=== PATIENT | male | born 1955 | race Caucasian/White ===

== ENCOUNTER 2016-05-02 13:42 | Inpatient (IN) | payer OTHER ==
[~2016-05-02] VITALS: Ht 185.4 cm; Wt 128.8 kg
[2016-05-03] VITALS (9 sets, daily range): BP systolic 101–148; BP diastolic 55–85; PULSE 65–90; TEMP 97.4–98.9
[2016-05-03 12:32] LABS: PH 6 (5-8); SQUAMOUS EPITHELIAL None Seen /hpf; URINE APPEARANCE Clear; URINE BACTERIA None Seen /hpf; URINE BILIRUBIN Negative (NEGATIVE); URINE BLOOD Negative (NEGATIVE); URINE COLOR Yellow; URINE GLUCOSE Negative (NEGATIVE); URINE KETONE Negative (NEGATIVE); URINE RBC 0-2 /hpf; URINE UROBILINOGEN Negative (NEGATIVE); URINE WBC 0-2 /hpf
[2016-05-03 13:23] LABS: INR 1.2 (0.8-3.0); PROTHROMBIN TIME 13.4 SECONDS (9.7-12.8)
[2016-05-03 13:28] LABS: BASO # 0.1 (0.0-0.2); BASO % 0.8 % (0.0-2.0); EOS # 0.2 (0.0-0.7); EOS % 1.6 % (0-4.0); GRAN # 6.6 (1.4-6.5); GRAN % 69.7 % (42.2-75.2); HEMATOCRIT 38.9 % (42.0-52.0); HEMOGLOBIN 12.6 g/dl (13.5-18.0); LYMPH # 1.8 (1.2-3.4); LYMPH % 19.1 % (20.0-51.0); MEAN CELL VOLUME 89 fl (80.0-100.0); MEAN CORPUSCULAR HEMOGLOBIN 29 pg (27.0-31.0); MEAN CORPUSCULAR HGB CONC 32 g/dl (33.0-37.0); MEAN PLATELET VOLUME 9.5 fl (7.4-10.4); MONO # 0.7 (0.1-0.6); MONO % 7.7 % (1.7-9.3); PLATELET COUNT 358 K/mm3 (130-400); RED BLOOD COUNT 4.35 M/mm3 (4.20-5.60); REDCELL DISTRIBUTION WIDTH-CV 12.6 % (11.5-14.5); WHITE BLOOD COUNT 9.5 K/mm3 (4.8-10.8)
[2016-05-03 13:31] LABS: C-REACTIVE PROTEIN 5.5 mg/dL (0.0-0.9)
[2016-05-03] MEDS ORDERED: ZESTRIL 20MG TA20 MG PO (13:32)
[2016-05-03] MEDS ORDERED: PHENOBARBITAL32.4 MG PO (13:33)
[2016-05-03] MEDS ORDERED: SYNTHROID0.2 MG/TAB PO (13:33)
[2016-05-03] MEDS ORDERED: MOTRIN 200200 MG/TAB PO (13:34)
[2016-05-03] MEDS ORDERED: TYLENOL 325MG325 MG PO (13:34)
[2016-05-03 14:01] LABS: CALCIUM 9.4 mg/dL (8.4-10.2); CREATININE, serum 0.78 mg/dL (0.66-1.25)
[2016-05-04] VITALS (7 sets, daily range): BP systolic 107–151; BP diastolic 56–84; PULSE 66–91; TEMP 97.5–98.9
[2016-05-04 07:09] LABS: HEMATOCRIT 37.5 % (42.0-52.0); HEMOGLOBIN 11.8 g/dl (13.5-18.0)
[2016-05-05 01:46] VITALS: BP 151/84; PULSE 86; TEMP 97
[2016-05-05 05:04] VITALS: BP 127/80; PULSE 89; TEMP 98.1
[2016-05-05 05:55] LABS: HEMATOCRIT 26.1 % (42.0-52.0); HEMOGLOBIN 8.4 g/dl (13.5-18.0)
[2016-05-05 09:28] VITALS: BP 178/83; PULSE 88; TEMP 97.1
[2016-05-05 13:39] VITALS: BP 152/82; PULSE 88; TEMP 99.3
[2016-05-05 18:00] VITALS: BP 152/78; PULSE 91; TEMP 98.4
[2016-05-05 22:01] VITALS: BP 148/78; PULSE 91; TEMP 99.2
[2016-05-06 01:22] VITALS: BP 142/75; PULSE 80; TEMP 98.9
[2016-05-06 06:15] VITALS: BP 138/79; PULSE 82; TEMP 97.2
[2016-05-06 10:06] VITALS: BP 154/85; PULSE 86; TEMP 98.1
[2016-05-06 14:06] VITALS: BP 156/88; PULSE 82; TEMP 98.8
[2016-05-06 18:06] VITALS: BP 148/85; PULSE 80; TEMP 99
[2016-05-06 22:46] VITALS: BP 141/70; PULSE 80; TEMP 98.9
[2016-05-07 05:29] VITALS: BP 144/83; PULSE 74; TEMP 98.1
[2016-05-07 09:45] VITALS: BP 155/86; PULSE 81; TEMP 97.1
[2016-05-07 14:15] VITALS: BP 147/82; PULSE 76; TEMP 99.5
[2016-05-07] MEDS ORDERED: PERCOCET 325 MG1 TA2 PO (14:42)
[2016-05-07 18:23] VITALS: BP 159/84; PULSE 83; TEMP 97.2
[2016-05-07 22:49] VITALS: BP 138/79; PULSE 79; TEMP 98.5
[2016-05-08 05:38] VITALS: BP 143/84; PULSE 73; TEMP 98.5
[2016-05-08 08:02] LABS: HEMATOCRIT 25.8 % (42.0-52.0); HEMOGLOBIN 8.2 g/dl (13.5-18.0)
[2016-05-08 09:30] VITALS: BP 149/87; PULSE 76; TEMP 97.7
[2016-05-08 13:32] VITALS: BP 139/87; PULSE 77; TEMP 97.6
[2016-05-08 17:06] VITALS: BP 155/92; PULSE 76; TEMP 98
[2016-05-08 22:15] VITALS: BP 134/77; PULSE 73; TEMP 98.4
[2016-05-09] VITALS (13 sets, daily range): BP systolic 131–158; BP diastolic 63–90; PULSE 63–100; TEMP 97.8–98.6
[2016-05-10 02:21] VITALS: BP 159/69; PULSE 84; TEMP 98.9
[2016-05-10 04:38] VITALS: BP 142/77; PULSE 77; TEMP 97.5
[2016-05-10 06:44] LABS: HEMATOCRIT 27.2 % (42.0-52.0); HEMOGLOBIN 8.5 g/dl (13.5-18.0)
[2016-05-10 11:21] VITALS: BP 151/81; PULSE 80; TEMP 97.3
[2016-05-10 13:54] VITALS: BP 143/72; PULSE 85; TEMP 98.8
[2016-05-10 17:40] VITALS: BP 137/80; PULSE 89; TEMP 99.3
[2016-05-10 21:35] VITALS: BP 156/77; PULSE 85
[2016-05-11 04:26] VITALS: BP 143/67; PULSE 84; TEMP 98.2
[2016-05-11 08:01] LABS: HEMATOCRIT 27.2 % (42.0-52.0); HEMOGLOBIN 8.5 g/dl (13.5-18.0)
[2016-05-11 10:33] VITALS: BP 147/87; PULSE 82; TEMP 98.2
[2016-05-11 15:14] VITALS: BP 146/75; PULSE 84; TEMP 98.4
[2016-05-11 18:59] VITALS: BP 152/82; PULSE 99; TEMP 99
[2016-05-11 21:41] VITALS: BP 143/69; PULSE 78; TEMP 98.2
[2016-05-12 02:01] VITALS: BP 149/79; PULSE 94; TEMP 97.9
[2016-05-12 05:26] VITALS: BP 165/86; PULSE 73; TEMP 97.4
[2016-05-12 06:04] LABS: HEMATOCRIT 27.2 % (42.0-52.0); HEMOGLOBIN 8.5 g/dl (13.5-18.0)
[2016-05-12 09:28] VITALS: BP 138/80; PULSE 78; TEMP 98.3
[2016-05-12 14:15] VITALS: BP 144/78; PULSE 79; TEMP 97.2
== END 2016-05-12 17:33 | disposition home or self-care (01) | DRG 467 ==
LOC: INPTSU 05-03 11:55 → SURG 05-03 11:55
PROVIDERS: Orthopaedic Surgery
PROC: 0SBC0ZZ Excision of Right Knee Joint, Open Approach (ICD-10-PCS; 2016-05-03)
PROC: 0SHC08Z Insertion of Spacer into Right Knee Joint, Open Approach (ICD-10-PCS; 2016-05-03)
PROC: 0SPC0JZ Removal of Synthetic Substitute from Right Knee Joint, Open Approach (ICD-10-PCS; principal; 2016-05-03 14:00)
PROC: 0SRC0J9 Replacement of Right Knee Joint with Synthetic Substitute, Cemented, Open Approach (ICD-10-PCS; 2016-05-09)
PROC: 0SPC08Z Removal of Spacer from Right Knee Joint, Open Approach (ICD-10-PCS; 2016-05-09)
DX: T84.53XA Infection and inflammatory reaction due to internal right knee prosthesis, initial encounter (principal); T81.4XXA Infection following a procedure, initial encounter; L03.115 Cellulitis of right lower limb; B95.61 Methicillin susceptible Staphylococcus aureus infection as the cause of diseases classified elsewhere; I10 Essential (primary) hypertension
CPT/HCPCS: A4315; A9284; C1713; C1751; C1776; J0690; J1644; J1650; J2250; J2270; J2274; J2405; J2704; J3010; J3260; J3370; J7040; J7042; J7120

== ENCOUNTER 2016-05-18 10:57 | Outpatient (CLI) | payer OTHER ==
[~2016-05-18] VITALS: Ht 185.4 cm; Wt 130.4 kg
[~2016-05-18 10:57] MED LIST: MOTRIN 200200 MG/TAB PO; PERCOCET 325 MG1 TA2 PO; PHENOBARBITAL32.4 MG PO; SYNTHROID0.2 MG/TAB PO; TYLENOL 325MG325 MG PO; ZESTRIL 20MG TA20 MG PO
[2016-05-18 11:30] VITALS: BP 169/108; PULSE 73
== END 2016-05-18 11:55 | disposition home or self-care (01) ==
LOC: EUO 10:57
DX: T84.53XA Infection and inflammatory reaction due to internal right knee prosthesis, initial encounter (principal); Y83.8 Other surgical procedures as the cause of abnormal reaction of the patient, or of later complication, without mention of misadventure at the time of the procedure; Z45.2 Encounter for adjustment and management of vascular access device
CPT/HCPCS: J1644

== ENCOUNTER → 2016-06-02 | Outpatient (REF) | LOC: ZAIV 06-01 06:10 | DX: Z45.2 Encounter for adjustment and management of vascular access device (principal) ==

== ENCOUNTER 2021-01-14 13:07 | Emergency (ER) | payer OTHER ==
[~2021-01-14] VITALS: Ht 185.4 cm; Wt 135.0 kg
[2021-01-14 13:36] VITALS: TEMP 98.2
[2021-01-14 17:19] LABS: HEMATOCRIT 45.5 % (42.0-52.0); HEMOGLOBIN 15.3 g/dl (13.5-18.0); MEAN CELL VOLUME 99 fl (80.0-100.0); MEAN CORPUSCULAR HEMOGLOBIN 33 pg (27.0-31.0); MEAN CORPUSCULAR HGB CONC 34 g/dl (33.0-37.0); MEAN PLATELET VOLUME 12.7 fl (7.4-10.4); PLATELET COUNT 151 K/mm3 (130-400); RED BLOOD COUNT 4.62 M/mm3 (4.20-5.60); REDCELL DISTRIBUTION WIDTH-CV 14.5 % (11.5-14.5)
[2021-01-14 17:22] LABS: INR 1.3 (0.8-3.0); PROTHROMBIN TIME 14.8 SECONDS (9.7-12.8)
[2021-01-14 17:29] LABS: ALANINE AMINOTRANSFERASE 111 U/L (4-49); ALBUMIN 3.4 gm/dL (3.5-5.0); ALKALINE PHOSPHATASE 304 U/L (50-136); ANION GAP 12 mmol/L (7-16); AST,SGOT 120 U/L (15-37); BILIRUBIN,TOTAL 9.4 mg/dL (0.0-1.0); BLOOD UREA NITROGEN 20 mg/dL (9-20); CALCIUM 8.8 mg/dL (8.4-10.2); CARBON DIOXIDE 19 mmol/L (22-30); CHLORIDE 104 mmol/L (98-107); CREATININE, serum 1.73 (0.66-1.25); GLUCOSE 102 mg/dL (74-106); MAGNESIUM 1.7 mg/dL (1.6-2.3); POTASSIUM 3.8 mmol/L (3.4-5.0); SODIUM 135 mmol/L (137-145)
[2021-01-14 17:34] LABS: BAND 22 % (0-10); LYMPHOCYTE 4 % (20.0-51.0); NEUTROPHILS 73 % (42.0-75.2); PLATELET ESTIMATE NORMAL (NORMAL)
[2021-01-14 17:39] LABS: TROPONIN-I < 0.012 ng/mL (0.000-0.035)
[2021-01-14 17:43] LABS: C-REACTIVE PROTEIN 13.3 mg/dL (0.0-0.9)
[2021-01-14 17:45] LABS: MONOSCREEN NEGATIVE
[2021-01-14 17:59] LABS: TSH w REFLEX 11.186 uIU/mL (0.350-4.940)
[2021-01-14 19:50] LABS: COLLECTION METHOD CLEAN CATCH
[2021-01-14 20:03] LABS: MUCOUS Present /lpf; PH 5 (5-8); SQUAMOUS EPITHELIAL 0-2 /hpf; URINE APPEARANCE Hazy; URINE BACTERIA None Seen /hpf; URINE BILIRUBIN Positive (NEGATIVE); URINE BLOOD 1+ (NEGATIVE); URINE CALCIUM OXALATE CRYSTAL Present /hpf; URINE COLOR Amber; URINE GLUCOSE Negative (NEGATIVE); URINE KETONE Negative (NEGATIVE); URINE LEUKOCYTE ESTERASE Negative (NEGATIVE); URINE NITRATE Negative (NEGATIVE); URINE PROTEIN(semi-quant) 1+ (NEGATIVE); URINE RBC 0-2 /hpf; URINE UROBILINOGEN >=4.0 mg/dL (NEGATIVE)
[2021-01-15 03:11] VITALS: BP 123/71; PULSE 78
== END 2021-01-15 03:11 | disposition other institution (70) ==
LOC: COL.ER 13:07
PROVIDERS: Emergency Medicine
DX: K83.09 Other cholangitis (principal); I10 Essential (primary) hypertension; G40.909 Epilepsy, unspecified, not intractable, without status epilepticus; E03.9 Hypothyroidism, unspecified; Z20.822 Contact with and (suspected) exposure to COVID-19; Z79.890 Hormone replacement therapy; Z79.899 Other long term (current) drug therapy
CPT/HCPCS: J2543; J7030; J7120; Q9967